=== PATIENT | female | born 1945 | race Caucasian/White ===

== ENCOUNTER 2016-09-07 10:39 | Inpatient (IN) | payer MEDICARE, OTHER ==
[~2016-09-07] VITALS: Ht 175.3 cm; Wt 110.3 kg
[~2016-09-07 10:39] MED LIST: ACIDOPHILUS1 EAC3 PO; AMOXICILLIN500 MG PO; BIAXIN500 MG PO; COUMADIN6 MG PO; DIGITEK125 MCG PO; LANTUS **100 UNITS/ SQ; LASIX40 MG PO; LAXATIVE5 MG PO; PRINIVIL20 MG PO; PROZAC20 MG PO; ZANTAC150 MG PO; ZOFRAN ODT4 MG PO
[2016-09-07 10:59] LABS: BASOPHIL 0.1 % (0-2); EOSINOPHIL 0.4 % (0-7); HCT 37.9 % (37.0-47.0); HGB 12.1 g/dl (12.5-16.0); LYMPHOCYTE 6.2 % (15-48); MCH 27.3 pg (25.0-31.0); MCHC 31.9 g/dL (32.0-36.0); MCV 85.4 fL (78.0-100.0); MONOCYTE 6.5 % (0-12); MPV 10.3 fL (6.0-9.5); NEUTROPHIL 86.8 % (41-80); PLT 233 K/uL (150-400); RBC 4.44 M/uL (4.20-5.40); RDW 15.1 % (11.5-14.0); WBC 12.8 K/uL (4.0-10.5)
[2016-09-07 11:19] LABS: LACTIC ACID 3.2 mmol/L (0.5-2.2)
[2016-09-07 11:22] LABS: ALBUMIN 4.2 g/dL (3.4-4.8); BILIRUBIN - TOTAL 0.6 mg/dL (0.1-1.0); CREATININE 0.6 mg/dL (0.5-1.0); GLOBULIN (CALCULATION) 2.9 g/dL (2.2-4.2); MAGNESIUM 1.82 mg/dL (1.40-2.10); POTASSIUM 4.4 mmol/L (3.5-5.1); TOTAL PROTEIN 7.1 g/dL (6.4-8.3)
[2016-09-07 11:24] LABS: CKMB 1.09 ng/mL (0.97-4.94); MYOGLOBIN 21 ng/mL (26-65); PRO-BNP 1409 pg/mL (0-125); TROPONIN T < 0.010 ng/mL
[2016-09-07 11:36] LABS: D-DIMER < 0.27 ug/mLFEU (0.00-0.41); PROTHROMBIN TIME 25.5 SECONDS (11.7-14.0); PTT 47.6 SECONDS (23.2-31.4)
[2016-09-07 12:30] LABS: BILIRUBIN NEGATIVE (NEGATIVE); BLOOD 1+ Ery/uL (NEGATIVE); CLARITY CLEAR (CLEAR); COLOR YELLOW (YELLOW); GLUCOSE (U) 3+ mg/dL (NORMAL); KETONE (U) 1+ (SMALL) mg/dL (NEGATIVE); LEUKOCYTES NEGATIVE Leu/uL (NEGATIVE); NITRITE POSITIVE (NEGATIVE); PROTEIN NEGATIVE (NEGATIVE); SPECIFIC GRAVITY 1.015 (1.001-1.030); UROBILINOGEN 0.2 mg/dL (0.2-1.0); pH 5.5 (5.0-9.0)
[2016-09-07 12:40] LABS: BACTERIA 3+
[2016-09-07 17:50] LABS: TROPONIN T < 0.010 ng/mL
[2016-09-08 04:28] LABS: BASOPHIL 0 % (0-2); EOSINOPHIL 0 % (0-7); HGB 11.6 g/dl (12.5-16.0); LYMPHOCYTE 5.4 % (15-48); MCH 27.2 pg (25.0-31.0); MCHC 32.2 g/dL (32.0-36.0); MCV 84.5 fL (78.0-100.0); MONOCYTE 8.7 % (0-12); MPV 10.9 fL (6.0-9.5); NEUTROPHIL 85.9 % (41-80); PLT 229 K/uL (150-400); RBC 4.26 M/uL (4.20-5.40); RDW 15.4 % (11.5-14.0); WBC 10.7 K/uL (4.0-10.5)
[2016-09-08 04:32] LABS: INR 2.42 (0.9-1.2); PROTHROMBIN TIME 25.7 SECONDS (11.7-14.0)
[2016-09-08 04:45] LABS: CREATININE 0.7 mg/dL (0.5-1.0); MAGNESIUM 1.99 mg/dL (1.40-2.10); POTASSIUM 4.2 mmol/L (3.5-5.1)
[2016-09-09 04:00] LABS: HCT 37.4 % (37.0-47.0); HGB 11.9 g/dl (12.5-16.0); MCHC 31.8 g/dL (32.0-36.0); MCV 84.8 fL (78.0-100.0); MPV 10.3 fL (6.0-9.5); RBC 4.41 M/uL (4.20-5.40); RDW 15.5 % (11.5-14.0); WBC 9.8 K/uL (4.0-10.5)
[2016-09-09 04:11] LABS: INR 2.79 (0.9-1.2); PROTHROMBIN TIME 28.7 SECONDS (11.7-14.0)
[2016-09-09 04:24] LABS: CREATININE 0.8 mg/dL (0.5-1.0); MAGNESIUM 2.13 mg/dL (1.40-2.10); POTASSIUM 4.1 mmol/L (3.5-5.1)
[2016-09-10 04:12] LABS: BASOPHIL 0.1 % (0-2); EOSINOPHIL 3.4 % (0-7); HCT 38.3 % (37.0-47.0); HGB 12.5 g/dl (12.5-16.0); LYMPHOCYTE 16.5 % (15-48); MCH 27.4 pg (25.0-31.0); MCHC 32.6 g/dL (32.0-36.0); MONOCYTE 16.7 % (0-12); MPV 10.3 fL (6.0-9.5); NEUTROPHIL 63.3 % (41-80); PLT 309 K/uL (150-400); RBC 4.56 M/uL (4.20-5.40)
[2016-09-10 04:27] LABS: INR 2.23 (0.9-1.2); PROTHROMBIN TIME 24.1 SECONDS (11.7-14.0)
[2016-09-10 04:42] LABS: CREATININE 0.9 mg/dL (0.5-1.0); MAGNESIUM 2.17 mg/dL (1.40-2.10); POTASSIUM 3.9 mmol/L (3.5-5.1)
[2016-09-11 05:26] LABS: HCT 38.8 % (37.0-47.0); HGB 12.5 g/dl (12.5-16.0); MCHC 32.2 g/dL (32.0-36.0); MCV 83.8 fL (78.0-100.0); MPV 10.3 fL (6.0-9.5); RBC 4.63 M/uL (4.20-5.40); RDW 14.6 % (11.5-14.0); WBC 9.6 K/uL (4.0-10.5)
[2016-09-11 05:38] LABS: INR 2.58 (0.9-1.2)
[2016-09-11 05:46] LABS: CREATININE 1.2 mg/dL (0.5-1.0); MAGNESIUM 2.41 mg/dL (1.40-2.10); POTASSIUM 4.1 mmol/L (3.5-5.1)
[2016-09-12 06:01] LABS: HCT 37.3 % (37.0-47.0); HGB 12.1 g/dl (12.5-16.0); MCH 27.2 pg (25.0-31.0); MCHC 32.4 g/dL (32.0-36.0); MCV 83.8 fL (78.0-100.0); MPV 9.8 fL (6.0-9.5); RBC 4.45 M/uL (4.20-5.40); RDW 14.4 % (11.5-14.0); WBC 8.6 K/uL (4.0-10.5)
[2016-09-12 06:14] LABS: INR 2.63 (0.9-1.2); PROTHROMBIN TIME 27.4 SECONDS (11.7-14.0)
[2016-09-12 06:22] LABS: CREATININE 1.1 mg/dL (0.5-1.0); MAGNESIUM 2.56 mg/dL (1.40-2.10); POTASSIUM 4.2 mmol/L (3.5-5.1)
[2016-09-13 04:09] LABS: HCT 38.1 % (37.0-47.0); HGB 12.1 g/dl (12.5-16.0); MCH 26.9 pg (25.0-31.0); MCHC 31.8 g/dL (32.0-36.0); MCV 84.7 fL (78.0-100.0); MPV 9.9 fL (6.0-9.5); RBC 4.5 M/uL (4.20-5.40); RDW 14.4 % (11.5-14.0); WBC 8.7 K/uL (4.0-10.5)
[2016-09-13 04:15] LABS: INR 2.36 (0.9-1.2); PROTHROMBIN TIME 25.2 SECONDS (11.7-14.0)
[2016-09-13 04:56] LABS: CREATININE 0.9 mg/dL (0.5-1.0); POTASSIUM 4.5 mmol/L (3.5-5.1)
[2016-09-14 04:25] LABS: HCT 37.6 % (37.0-47.0); HGB 11.8 g/dl (12.5-16.0); MCH 26.8 pg (25.0-31.0); MCHC 31.4 g/dL (32.0-36.0); MCV 85.3 fL (78.0-100.0); RBC 4.41 M/uL (4.20-5.40); RDW 14.3 % (11.5-14.0)
[2016-09-14 04:34] LABS: INR 2.33 (0.9-1.2); PROTHROMBIN TIME 24.9 SECONDS (11.7-14.0)
[2016-09-14 04:41] LABS: CREATININE 0.8 mg/dL (0.5-1.0); POTASSIUM 4.7 mmol/L (3.5-5.1)
[2016-09-15 05:25] LABS: HGB 11.8 g/dl (12.5-16.0); MCH 26.9 pg (25.0-31.0); MCHC 31.9 g/dL (32.0-36.0); MCV 84.3 fL (78.0-100.0); MPV 10.1 fL (6.0-9.5); RBC 4.39 M/uL (4.20-5.40); RDW 14.3 % (11.5-14.0); WBC 6.5 K/uL (4.0-10.5)
[2016-09-15 05:47] LABS: CREATININE 0.8 mg/dL (0.5-1.0); POTASSIUM 4.4 mmol/L (3.5-5.1)
[2016-09-16 05:45] LABS: HCT 36.8 % (37.0-47.0); HGB 11.7 g/dl (12.5-16.0); MCH 26.6 pg (25.0-31.0); MCHC 31.8 g/dL (32.0-36.0); MCV 83.6 fL (78.0-100.0); MPV 10.2 fL (6.0-9.5); RBC 4.4 M/uL (4.20-5.40); RDW 14.2 % (11.5-14.0); WBC 7.1 K/uL (4.0-10.5)
[2016-09-16 06:00] LABS: INR 2.35 (0.9-1.2); PROTHROMBIN TIME 25.1 SECONDS (11.7-14.0)
[2016-09-16 06:10] LABS: CREATININE 0.8 mg/dL (0.5-1.0); POTASSIUM 4.5 mmol/L (3.5-5.1)
[2016-09-16] MEDS ORDERED: PROTONIX40 MG PO (15:25)
[2016-09-16] MEDS ORDERED: COREG12.5 MG PO (15:27)
[2016-09-16] MEDS ORDERED: NOVOLOG VI100 UNIT/1 SQ (15:31)
[2016-09-16] MEDS ORDERED: ASPIRIN CHEWABL81 MG PO (15:32)
[2016-09-16] MEDS ORDERED: CERTAGEN1 EACH PO (15:32)
[2016-09-16] MEDS ORDERED: HUMULIN R100 UNIT/1 SC (15:32)
[2016-09-16] MEDS ORDERED: ZOFRAN4 MG PO (15:33)
[2016-09-16] MEDS ORDERED: ACETAMINOPHEN325 MG PO (15:33)
[2016-09-16] MEDS ORDERED: MILK OF MA400 MG/5 M PO (15:33)
[2016-09-16] MEDS ORDERED: DUONEB 2.5-0.5M1 AMP NEB (15:34)
[2016-09-16] MEDS ORDERED: MLYLANTA/MAALOX30 ML PO (15:34)
[2016-09-16] MEDS ORDERED: KEFLEX250 MG PO (15:35)
== END 2016-09-16 20:10 | DRG 871 ==
LOC: FER 10:39 → FTCU 12:38 → FMS 09-13 11:00
PROVIDERS: Emergency Medicine; Internal Medicine; ADMIT Internal Medicine Nephrology
DX: A41.9 Sepsis, unspecified organism (principal); I50.33 Acute on chronic diastolic (congestive) heart failure; J96.01 Acute respiratory failure with hypoxia; N30.00 Acute cystitis without hematuria; R65.20 Severe sepsis without septic shock; E66.01 Morbid (severe) obesity due to excess calories; I48.2 Chronic atrial fibrillation; D64.9 Anemia, unspecified; I11.0 Hypertensive heart disease with heart failure; R53.1 Weakness; B95.2 Enterococcus as the cause of diseases classified elsewhere; E11.65 Type 2 diabetes mellitus with hyperglycemia; Z79.4 Long term (current) use of insulin; Z79.899 Other long term (current) drug therapy; Z79.01 Long term (current) use of anticoagulants; Z98.84 Bariatric surgery status; Z68.39 Body mass index [BMI] 39.0-39.9, adult; Z87.440 Personal history of urinary (tract) infections
CPT/HCPCS: 36415; 36600; 71010; 80048; 80053; 80162; 81001; 82550; 82553; 82803; 82962; 83036; 83605; 83735; 83874; 83880; 84484; 85025; 85379; 85610; 85730; 87040; 87076; 87077; 87088; 87186; 87804; 87899; 93005; 94640; 94668; 97110; 97116; 97162; 97166; 97530; 97530-GP; 97535; J1815; J1940; J1956; J2930

== ENCOUNTER 2020-11-14 17:41 | Inpatient (IN) | payer MEDICARE, OTHER ==
[~2020-11-14] VITALS: Ht 175.3 cm; Wt 113.2 kg
[~2020-11-14 17:41] MED LIST changes: +ACETAMINOPHEN325 MG PO; +ASPIRIN CHEWABL81 MG PO; +CEFDINIR300 MG PO; +CERTAGEN1 EACH PO; +CLARITIN10 MG PO; +COREG12.5 MG PO; +DUONEB 2.5-0.5M1 AMP NEB; +HUMULIN N100 UNIT/1 SC; +HUMULIN R100 UNIT/1 SC; +KEFLEX250 MG PO; +METFORMIN HCL500 MG PO; +MICONAZOLE 2% P85 GM TOP; +MILK OF MA400 MG/5 M PO; +MLYLANTA/MAALOX30 ML PO; +NOVOLOG VI100 UNIT/1 SQ; +PROTONIX 40MG T40 MG PO; +PROTONIX40 MG PO; +ZOCOR20 MG PO; +ZOFRAN4 MG PO
[2020-11-14 18:41] LABS: BASOPHIL 0.2 % (0-2); EOSINOPHIL 1.8 % (0-7); HCT 24.1 % (37.0-47.0); MCH 25.9 pg (25.0-31.0); MCHC 30.3 g/dL (32.0-36.0); MCV 85.5 fL (78.0-100.0); MONOCYTE 9.5 % (0-12); NEUTROPHIL 76.6 % (41-80); NRBC 0; PLT 247 K/uL (150-400); RBC 2.82 M/uL (4.20-5.40); RDW 15.3 % (11.5-14.0)
[2020-11-14 18:42] LABS: WBC 8.7 K/uL (4.0-10.5)
[2020-11-14 18:43] LABS: HGB 7.3 g/dl (12.5-16.0)
[2020-11-14 18:46] LABS: INR 2.93 (0.9-1.2); PROTHROMBIN TIME 29.6 SECONDS (11.8-13.4); PTT 69.4 SECONDS (24.4-34.7)
[2020-11-14 18:48] LABS: BILIRUBIN NEGATIVE (NEGATIVE); BLOOD NEGATIVE Ery/uL (NEGATIVE); CLARITY HAZY (CLEAR); COLOR YELLOW (YELLOW); GLUCOSE (U) NORMAL (NORMAL); LEUKOCYTES 2+ Leu/uL (NEGATIVE); NITRITE NEGATIVE (NEGATIVE); PROTEIN NEGATIVE (NEGATIVE)
[2020-11-14 18:54] LABS: URINARY RBC RARE; URINARY WBC TNTC
[2020-11-14 18:54] LABS: BILIRUBIN - TOTAL 0.3 mg/dL (0.2-1.0); BUN/CREAT RATIO (CALC) 30.3 RATIO; CREATININE 0.99 mg/dL (0.51-0.95); GLOBULIN (CALCULATION) 3.2 g/dL; POTASSIUM 4.3 mmol/L (3.5-5.1); TOTAL PROTEIN 6.2 g/dL (6.4-8.2)
[2020-11-14 18:55] LABS: BACTERIA 3+; SQUAMOUS EPITHELIAL CELLS RARE
[2020-11-14 19:00] LABS: PRO-BNP 1559 pg/mL (<125)
[2020-11-14 19:55] LABS: CORONAVIRUS 2019 SARS-COV-2 NEGATIVE (NEGATIVE); INFLUENZA A NAA NEGATIVE (NEGATIVE)
[2020-11-15 06:05] LABS: BASOPHIL 0.2 % (0-2); EOSINOPHIL 2.2 % (0-7); HCT 25.2 % (37.0-47.0); HGB 7.5 g/dl (12.5-16.0); LYMPHOCYTE 12.8 % (15-48); MCH 25.3 pg (25.0-31.0); MCHC 29.8 g/dL (32.0-36.0); MCV 85.1 fL (78.0-100.0); MONOCYTE 10.5 % (0-12); MPV 9.6 fL (6.0-9.5); NRBC 0; PLT 269 K/uL (150-400); RBC 2.96 M/uL (4.20-5.40); RDW 15.6 % (11.5-14.0); WBC 8.7 K/uL (4.0-10.5)
[2020-11-15 06:15] LABS: INR 2.54 (0.9-1.2); PROTHROMBIN TIME 26.4 SECONDS (11.8-13.4)
[2020-11-15 06:28] LABS: IRON % SATURATION 5.4 %SAT (20-50)
[2020-11-15 06:37] LABS: CREATININE 0.87 mg/dL (0.51-0.95); POTASSIUM 4.1 mmol/L (3.5-5.1)
--- NOTE | 2020-11-15 10:16 | NUR ---
S/W PATIENTS DAUGHTER, CHRIS (POA). PATIENT SEES DR SANDOVAL SALES AT [facility], .
--- NOTE | 2020-11-15 11:26 | NUR ---
RECORDS REQUESTED FROM [facility], [place] VIA TELEPHONE, AWAITING FAX.
--- NOTE | 2020-11-15 12:19 | NUR ---
PATIENT AMBULATED IN ROOM WITH OCCUPATIONAL THERAPY, OXYGEN SAT WHILE AMBULATION 86-95%. DR NETTLES NOTIFIED
--- NOTE | 2020-11-15 14:41 | NUR ---
PLEASE CALL EVLIA WITH [facility] TO ADVISE OF PT. D/C [phone]. MET WITH PT. SHE ADVISED THAT SHE RESIDES WITH HER STEP DAUGHTER. SHE HAS BEEN INDEPENDENT. SHE HAS A ROLLING WALKER, ROLLATOR AND ELECTRIC CART. SHE REQUESTS [facility]. SHE SIGNED THE CHOICE FORM.
--- NOTE | 2020-11-15 17:53 | NUR ---
1500 S/W PATIENTS DAUGHTER CHRIS, ALSO POA, AND SHE REQUESTED TO BE CONSULTED WITH ALL DECISIONS OF THE PATIENTS CARE
--- NOTE | 2020-11-15 18:30 | NUR ---
1550 O2 SAT CHECKED, PATIETN RESTING IN BED AT 89% ON ROOM AIR. PATIENT PLACED ON 2L NC, DR NETTLES NOTIFIED. NO NEW ORDERS AT THIS TIME
[2020-11-16 04:31] LABS: BASOPHIL 0.4 % (0-2); EOSINOPHIL 3.1 % (0-7); HCT 26.3 % (37.0-47.0); HGB 7.9 g/dl (12.5-16.0); LYMPHOCYTE 15.1 % (15-48); MCH 25.6 pg (25.0-31.0); MCV 85.4 fL (78.0-100.0); MONOCYTE 14.5 % (0-12); MPV 9.9 fL (6.0-9.5); NEUTROPHIL 64.5 % (41-80); NRBC 0; PLT 280 K/uL (150-400); RBC 3.08 M/uL (4.20-5.40); RDW 15.4 % (11.5-14.0)
[2020-11-16 04:40] LABS: PROTHROMBIN TIME 21.8 SECONDS (11.8-13.4)
[2020-11-16 05:38] LABS: BUN/CREAT RATIO (CALC) 22.1 RATIO; CREATININE 0.86 mg/dL (0.51-0.95); FOLIC ACID (SERUM) 81.4 ng/mL (8.6-58.9); POTASSIUM 3.8 mmol/L (3.5-5.1)
[2020-11-16] MEDS ORDERED: HEMOCYTE324 MG PO (11:28)
[2020-11-16] MEDS ORDERED: PEPCID AC20 MG PO (11:29)
[2020-11-17 06:25] LABS: BASOPHIL 0.4 % (0-2); EOSINOPHIL 3.6 % (0-7); HCT 27.1 % (37.0-47.0); LYMPHOCYTE 13.7 % (15-48); MCH 25.3 pg (25.0-31.0); MCHC 29.5 g/dL (32.0-36.0); MCV 85.8 fL (78.0-100.0); MONOCYTE 12.1 % (0-12); MPV 9.8 fL (6.0-9.5); NEUTROPHIL 66.9 % (41-80); NRBC 0; PLT 289 K/uL (150-400); RBC 3.16 M/uL (4.20-5.40); RDW 15.5 % (11.5-14.0); WBC 7.8 K/uL (4.0-10.5)
[2020-11-17 06:32] LABS: INR 1.49 (0.9-1.2); PROTHROMBIN TIME 17.3 SECONDS (11.8-13.4)
[2020-11-17 06:41] LABS: BUN/CREAT RATIO (CALC) 27.9 RATIO; CREATININE 0.86 mg/dL (0.51-0.95); POTASSIUM 4.1 mmol/L (3.5-5.1)
[2020-11-17] MEDS ORDERED: DEMADEX20 MG PO (08:30)
[2020-11-17] MEDS ORDERED: WARFARIN SODIUM5 MG PO (08:32)
[2020-11-17] MEDS ORDERED: BACTRIM DS TAB1 EACH PO (09:36)
[2020-11-17] MEDS ORDERED: HEMOCYTE324 MG PO (10:54)
--- NOTE | 2020-11-17 13:33 | NUR ---
DISCUSSED DISCHARGE INSTRUCTIONS WITH PATIENT. IV REMOVED PRIOR TO DISCHARGE, NO BLEEDING THROUGH. INFORMED PATIENT ON PRESCRIPTIONS, FOLLOW UP APPOINTMENTS NEEDING TO BE MADE. PT TO DISCHARGE HOME WITH HOME HEALTH, FAMILY. IN STABLE CONDITION
[2020-11-17] MEDS ORDERED: CEFUROXIME500 MG PO (14:22)
--- NOTE | 2020-11-17 15:16 | NUR ---
NOTIFIED NURSING THAT CULTURE CAME BACK NOT SENSITVE TO ANTIBIOTIC SENT WITH PATIENT ON DISCHARGE. ABX CHANGED AND ASKED TO NOTIFY PATIENT PATIENT CALLED AND INFORMED, STATED PICKED UP CORRECT ABX SCRIPT
== END 2020-11-17 13:00 | disposition home health service (06) | DRG 811 ==
LOC: FER 17:41 → FMS 20:38
PROVIDERS: Emergency Medicine; Nurse Practitioner; Nurse Practitioner Family; ADMIT Allergy & Immunology Allergy
DX: D50.9 Iron deficiency anemia, unspecified (principal); I50.33 Acute on chronic diastolic (congestive) heart failure; N39.0 Urinary tract infection, site not specified; K91.2 Postsurgical malabsorption, not elsewhere classified; I48.20 Chronic atrial fibrillation, unspecified; I11.0 Hypertensive heart disease with heart failure; E11.9 Type 2 diabetes mellitus without complications; E66.9 Obesity, unspecified; I27.20 Pulmonary hypertension, unspecified; I08.1 Rheumatic disorders of both mitral and tricuspid valves; Z68.36 Body mass index [BMI] 36.0-36.9, adult; Z79.01 Long term (current) use of anticoagulants; Z79.4 Long term (current) use of insulin; Z90.49 Acquired absence of other specified parts of digestive tract; Z79.899 Other long term (current) drug therapy; Z98.51 Tubal ligation status; Z90.3 Acquired absence of stomach [part of]; Z90.89 Acquired absence of other organs; Z98.890 Other specified postprocedural states
CPT/HCPCS: 36415; 71045; 80048; 80053; 81001; 82607; 82728; 82746; 82962; 83540; 83550; 83880; 84484; 85025; 85610; 85730; 86850; 86900; 86901; 87076; 87088; 87186; 93005; 94660; 97116; 97161; 97166; 97530; 97535; J0696; J1940; J2916; U0002

== ENCOUNTER 2022-01-11 16:39 | Emergency (ER) | payer MEDICARE, OTHER ==
[~2022-01-11 16:39] MED LIST changes: +BACTRIM DS TAB1 EACH PO; +CEFUROXIME500 MG PO; +DEMADEX20 MG PO; +HEMOCYTE324 MG PO; +PEPCID AC20 MG PO; +WARFARIN SODIUM5 MG PO
[2022-01-11 17:54] LABS: BASOPHIL 0.2 % (0-2); EOSINOPHIL 1.6 % (0-7); HCT 25.6 % (37.0-47.0); HGB 7.7 g/dl (12.5-16.0); LYMPHOCYTE 10.3 % (15-48); MCH 26.3 pg (25.0-31.0); MCHC 30.1 g/dL (32.0-36.0); MCV 87.4 fL (78.0-100.0); MONOCYTE 9.7 % (0-12); MPV 9.8 fL (6.0-9.5); NEUTROPHIL 77.5 % (41-80); NRBC 0; PLT 271 K/uL (150-400); RBC 2.93 M/uL (4.20-5.40); RDW 15.2 % (11.5-14.0); WBC 8.1 K/uL (4.0-10.5)
[2022-01-11 17:59] LABS: INR 4.28 (0.9-1.2); PROTHROMBIN TIME 39.5 SECONDS (11.9-13.9)
[2022-01-11 18:17] LABS: BILIRUBIN - TOTAL 0.4 mg/dL (0.2-1.0); CREATININE 0.99 mg/dL (0.51-0.95); GLOBULIN (CALCULATION) 3.6 g/dL; POTASSIUM 4.8 mmol/L (3.5-5.1); TOTAL PROTEIN 6.6 g/dL (6.4-8.2)
[2022-01-11 18:42] LABS: CORONAVIRUS 2019 SARS-COV-2 NEGATIVE (NEGATIVE); INFLUENZA A NAA NEGATIVE (NEGATIVE)
== END 2022-01-12 03:00 | disposition other institution (70) ==
LOC: FER 16:39
PROVIDERS: Internal Medicine
DX: I50.9 Heart failure, unspecified (principal); R79.0 Abnormal level of blood mineral; E11.9 Type 2 diabetes mellitus without complications; Z20.822 Contact with and (suspected) exposure to COVID-19
CPT/HCPCS: 36415; 71045; 71275; 80053; 83880; 84484; 85025; 85610; 85730; 93005; 94640; 94664; Q9967; U0002